=== PATIENT | female | born 1950 | race Caucasian/White ===

== ENCOUNTER 2024-02-13 11:06 | Outpatient (CLI) | payer MEDICARE | END 2024-02-13 11:07 | disposition home or self-care (01) | LOC: CSHMAMMO 11:06 | PROVIDERS: ATTEND Family Medicine | DX: Z12.31 Encounter for screening mammogram for malignant neoplasm of breast (principal); Z13.820 Encounter for screening for osteoporosis; N64.89 Other specified disorders of breast; M85.851 Other specified disorders of bone density and structure, right thigh; M85.852 Other specified disorders of bone density and structure, left thigh; Z91.89 Other specified personal risk factors, not elsewhere classified | CPT/HCPCS: 77063; 77067; 77080 ==

== ENCOUNTER 2024-03-31 13:32 | Outpatient (CLI) | payer MEDICARE | END 2024-03-31 13:33 | disposition home or self-care (01) | LOC: CSHMAMMO 13:32 | PROVIDERS: ATTEND Family Medicine | DX: N64.89 Other specified disorders of breast (principal); N63.11 Unspecified lump in the right breast, upper outer quadrant | CPT/HCPCS: 76642; 77065; G0279 ==

== ENCOUNTER 2024-05-25 15:46 | Outpatient (CLI) | payer MEDICARE ==
[2024-05-25 16:45] LABS: #Basophils 0.04 10x3/uL (0.0-0.2); #Eosinophils 0.15 10x3/uL (0.0-0.5); #Monocytes 0.61 10x3/uL (0.0-1.1); %Basophils 0.6 % (0.0-2.0); %Eosinophils 2.2 % (0.0-6.0); %Lymphocytes 45.1 % (18.0-47.0); %Neutrophils 42.8 % (40.0-75.0); Hematocrit 42.6 % (34.9-44.5); Mean Corpuscular HGB CONC 32.9 g/dL (32.0-36.0); Mean Corpuscular Hemoglobin 30.7 pg (27.0-33.0); Mean Corpuscular Volume 93.4 fL (81.6-98.3); Mean Platelet Volume 10.3 fL (7.4-10.4); Platelet Count 228 10x3/uL (150-450); RBC Distribution Width 13.6 % (11.5-14.5); Red Blood Cell (RBC) Count 4.56 10x6/uL (3.90-5.03); White Blood Cell (WBC) Count 6.8 10x3/uL (3.5-10.5)
[2024-05-25 16:48] LABS: Prothrombin Time 10.9 sec (9.5-12.1)
[2024-05-25 16:51] LABS: Anion Gap 15 mmol/L (10-20); BUN (Urea Nitrogen) 21 mg/dL (9.8-20.1); Calc. Creatinine Clearance 0 mL/min (70-130); Calcium 9.2 mg/dL (7.8-10.44); Carbon Dioxide 24 mmol/L (23-31); Chloride 107 mmol/L (98-107); Estimated GFR 83; Glucose 152 mg/dL (83-110); Potassium 4.1 mmol/L (3.5-5.1); Sodium 142 mmol/L (136-145)
[2024-05-25 16:52] LABS: ALT (SGPT) 55 U/L (8-55); AST (SGOT) 64 U/L (5-34); Albumin 3.5 g/dL (3.4-4.8); Alkaline Phosphatase 144 U/L (40-110); Bilirubin, Direct 0.1 mg/dL (0.1-0.3); Bilirubin, Total 0.4 mg/dL (0.2-1.2)
== END 2024-05-25 15:47 | disposition home or self-care (01) ==
LOC: CSHLAB 15:46
PROVIDERS: ATTEND Surgery
DX: Z01.812 Encounter for preprocedural laboratory examination (principal); N63.10 Unspecified lump in the right breast, unspecified quadrant
CPT/HCPCS: 80048; 80076; 85025; 85610; 85730

== ENCOUNTER 2024-05-29 06:24 | Day surgery (SDC) | payer MEDICARE ==
[2024-05-25 16:16] VITALS: BMI 44.4
[2024-05-29] MEDS ORDERED: Rocuronium Bromide 10 MG/ML (10ML VIAL) ONE ×2 (07:52→09:42)
[2024-05-29] MEDS ORDERED: Lidocaine 1% PF 5 ML VIAL ONE ×2 (07:52→08:32)
[2024-05-29] MEDS ORDERED: PROPOFOL 0 ML ONE (07:52)
[2024-05-29] MEDS ORDERED: PROPOFOL 40 ML ONE (08:32)
[2024-05-29] MEDS ORDERED: Isosulfan Blue 50 MG/5 ML VIAL ONE (09:43)
[2024-05-29] MEDS ORDERED: Bupivacaine/Epinephrine 0.25% 30 ML VIAL ONE (09:43)
[2024-05-29] MEDS ORDERED: fentaNYL 50 mcg/mL 1 mL Vial ONE (09:43)
[2024-05-29] MEDS ORDERED: Clindamycin/D5W 900 mg/50 ml Premix Bag ONE (09:55)
[2024-05-29] MEDS ORDERED: Dexamethasone 4 mg/ml Vial ONE (10:14)
[2024-05-29] MEDS ORDERED: Ondansetron PF 4 MG/2 ML Vial ONE (10:14)
[2024-05-29] MEDS ORDERED: MINERAL OIL/WHITE PETROLATUM 3.5 GM TUBE ONE (10:14)
[2024-05-29] MEDS ORDERED: PHENYLEPHRINE-NS 100 MCG/ML 10 ML SYRINGE ONE (10:18)
[2024-05-29] MEDS ORDERED: SUGAMMADEX SODIUM 200 MG/2 ML VIAL ONE ×2 (10:35→10:48)
[2024-05-29] MEDS ORDERED: traMADol HCl 50 MG TAB ONE (12:02)
== END 2024-05-29 12:30 | disposition home or self-care (01) ==
LOC: CSHSDC 06:24
PROVIDERS: ATTEND Surgery
PROC: 0HBT0ZZ Excision of Right Breast, Open Approach (ICD-10-PCS; principal; 2024-05-29)
DX: N60.31 Fibrosclerosis of right breast (principal); N60.21 Fibroadenosis of right breast; N62 Hypertrophy of breast; N64.1 Fat necrosis of breast; R92.0 Mammographic microcalcification found on diagnostic imaging of breast; I10 Essential (primary) hypertension; J44.9 Chronic obstructive pulmonary disease, unspecified; E78.00 Pure hypercholesterolemia, unspecified; M79.7 Fibromyalgia; L40.50 Arthropathic psoriasis, unspecified; Z87.59 Personal history of other complications of pregnancy, childbirth and the puerperium; Z87.442 Personal history of urinary calculi; Z96.653 Presence of artificial knee joint, bilateral; Z90.89 Acquired absence of other organs; Z90.49 Acquired absence of other specified parts of digestive tract; Z90.710 Acquired absence of both cervix and uterus; Z98.41 Cataract extraction status, right eye; Z98.42 Cataract extraction status, left eye; Z88.8 Allergy status to other drugs, medicaments and biological substances; Z88.5 Allergy status to narcotic agent; Z88.0 Allergy status to penicillin; Z91.012 Allergy to eggs; Z91.013 Allergy to seafood; Z79.82 Long term (current) use of aspirin; Z79.899 Other long term (current) drug therapy
CPT/HCPCS: 19125; 19285; 76098; J1100; J2405; J2704; J3010; J3490; 88307; Q9968

== ENCOUNTER 2024-07-13 13:50 | Outpatient (CLI) | payer MEDICARE | END 2024-07-13 13:51 | disposition home or self-care (01) | LOC: CSHCP 13:50 | PROVIDERS: ATTEND Internal Medicine | DX: J45.30 Mild persistent asthma, uncomplicated (principal); R94.2 Abnormal results of pulmonary function studies | CPT/HCPCS: 94060; 94664; 94726; 94729; 94760 ==

== ENCOUNTER 2024-07-23 08:38 | Outpatient (CLI) | payer MEDICARE | END 2024-07-23 08:39 | disposition home or self-care (01) | LOC: CSHSLEEP 08:38 | PROVIDERS: ATTEND Internal Medicine | DX: G47.33 Obstructive sleep apnea (adult) (pediatric) (principal) | CPT/HCPCS: 95800 ==